=== PATIENT | female | born 1945 | race Caucasian/White ===

== ENCOUNTER → 2017-10-12 | Outpatient (CLI) | payer MEDICARE ==
[~2017-10-12] MED LIST: CIP500 PO; LEVO75TA68 PO; LISI-349 PO; PHENA200 PO
--- NOTE | 2017-10-13 09:34 | RADIOLOGY IMAGING REPORT ---
FACILITY: [facility] PATIENT NAME: DARRYN WATTS : [id number] MR: [id number] V: [id number] EXAM DATE: ORDERING PHYSICIAN: KANU RAYGOZA TECHNOLOGIST: Tabitha Hartley PROCEDURE:BILATERAL DIGITAL SCREENING MAMMOGRAM WITH CAD ASSISTED INTERPRETATION & 3D TOMOSYNTHESIS COMPARISON:Prior mammograms 10/11/16, 10/08/15, 10/02/14, 09/26/13, 09/18/12, 09/16/11. INDICATIONS:SCREENING FINDINGS: Moderately dense fibroglandular tissue is seen throughout the breasts. The parenchymal pattern has remained stable allowing for difference in mammographic technique & patient positioning. There is no evidence of malignant appearing mass, malignant appearing calcifications or other secondary sign of malignancy in either breast. DIAGNOSTIC CATEGORY 1--NEGATIVE. RECOMMENDATIONS: ROUTINE MAMMOGRAM AND CLINICAL EVALUATION. IMPRESSION: BIRADS 1: Negative. No significant abnormality is seen. Dictated by: Rin Valiente M.D. on 10/12/2017 at 14:21 Transcribed by: [email or web address] on 10/12/2017 at 14:43 Approved by: Rin Valiente M.D. on 10/13/2017 at 9:34 [facility]
== END ==
LOC: MAMO 00:57
PROVIDERS: ATTEND Family Medicine
DX: Z12.31 Encounter for screening mammogram for malignant neoplasm of breast (principal)
CPT/HCPCS: 77063; 77067

== ENCOUNTER → 2018-10-17 | Outpatient (CLI) | payer MEDICARE ==
--- NOTE | 2018-10-17 11:49 | RADIOLOGY IMAGING REPORT ---
FACILITY: [facility] PATIENT NAME: DARRYN WATTS : [id number] MR: [id number] V: [id number] EXAM DATE: ORDERING PHYSICIAN: KANU RAYGOZA TECHNOLOGIST: Leatha Joaquin PROCEDURE: BILATERAL DIGITAL SCREENING MAMMOGRAM WITH CAD ASSISTED INTERPRETATION & 3D TOMOSYNTHESIS. REASON FOR STUDY: Screening. FAMILY HISTORY OF BREAST CANCER: None. BREAST PROCEDURES/TREATMENTS: None. COMPARISON: 09/2817, 10/11/16, 10/08/15, 10/02/14, 09/26/13, 09/18/12. VIEWS OBTAINED: Bilateral 2D & 3D full field CC & MLO projections. BREAST DENSITY: The breasts are heterogeneously dense which can obscure small masses. MAMMOGRAM FINDINGS: The parenchymal pattern has remained stable allowing for difference in mammographic technique & patient positioning. IMPRESSION: BIRADS 1: Negative. DIAGNOSTIC CATEGORY 1--NEGATIVE. RECOMMENDATIONS: ROUTINE MAMMOGRAM AND CLINICAL EVALUATION. Dictated by: Rin Valiente M.D. on 10/17/2018 at 9:15 Transcribed by: [email or web address] on 10/17/2018 at 11:38 Approved by: Rin Valiente M.D. on 10/17/2018 at 11:46 [facility]
== END ==
LOC: MAMO 00:07
PROVIDERS: ATTEND Family Medicine
DX: Z12.31 Encounter for screening mammogram for malignant neoplasm of breast (principal)
CPT/HCPCS: 77063; 77067